=== PATIENT | female | born 1985 | race Caucasian/White ===

== ENCOUNTER 2017-11-11 08:17 | Emergency (ER) | payer MEDICAID ==
[~2017-11-11] VITALS: Ht 162.6 cm; Wt 65.0 kg
[~2017-11-11 08:17] MED LIST: VIST25CA PO
[2017-11-11 08:25] VITALS: BP 102/59; PULSE 78; RESP 16; TEMP 98.6; O2SAT 100
[2017-11-11] MEDS ORDERED: AZIT250T3 PO (08:42)
--- NOTE | 2017-11-11 08:43 | PD ---
HPI Chief Complaint: ENT Complaint Time Seen by Provider: 08:30 Travel History International Travel<30 days: No Contact w/Intl Traveler<30days: No Traveled to known affect area: No History of Present Illness HPI Patient is a 32-year-old female presenting to the emergency department for evaluation of 2 days of loss of voice, ear pressure, sore throat. Patient has not been taking any igii-fbp-owclxrj medications to alleviate her symptoms. She denies any fever, chills, nausea, vomiting, shortness of breath, chest pain. She denies any significant past medical history. Symptom onset was gradual, symptoms are mild to moderate nature. There are no alleviating factors. Symptoms are constant in nature. PFSH Past Medical History Depression: Yes (CHRONIC DEPRESSION, AT 16 HX OF CUTTING AND TAKING PILLS) Immunizations Current: Yes ?: Not : 4 Para: 1 Miscarriage: 0 : 2 Past Surgical History Gynecologic Surgery: Yes (2 ABORTIONS) Oral Surgery: Yes (WISDOM TEETH) Thoracic Surgery: Yes (BREAST IMPLANTS) Social History Alcohol Use: Yes (OCC) Tobacco Use: No Substance Use: No (LAST MARIJUANA 2000) Allergies-Medications (Allergen,Severity, Reaction): Coded Allergies: latex (Unverified Allergy, Mild, RASH, 01/14/17) lactose (Unverified Allergy, Unknown, 01/14/17) penicillin G (Unverified Allergy, Unknown, 01/14/17) Reported Meds & Prescriptions Reported Meds & Active Scripts Active Reported Vistaril (Hydroxyzine Pamoate) 25 Mg Cap 25 Mg PO HS Review of Systems Except as stated in HPI: all other systems reviewed are Neg General / Constitutional: No: Fever, Chills HENT: Positive: Sore Throat, Rhinitis, Congestion, Earache Cardiovascular: No: Chest Pain or Discomfort Respiratory: Positive: Cough, No: Shortness of Breath, Wheezing Gastrointestinal: No: Nausea, Vomiting, Abdominal Pain Musculoskeletal: No: Myalgias Neurologic: No: Dizziness Physical Exam Narrative GENERAL: Well-developed, well-nourished, alert female. Presenting in no acute distress. SKIN: Warm and dry. HEAD: Atraumatic. Normocephalic. EYES: Pupils equal and round. No scleral icterus. No injection or drainage. Extraocular movements are intact. ENT: No nasal bleeding or discharge. Mucous membranes pink and moist. Bilateral tympanic membranes and external ear canals are without erythema, bulging, dullness, exudate. Posterior pharynx with cobblestone appearance, no lymphadenopathy noted, no tonsillar hypertrophy noted. NECK: Trachea midline. No JVD. CARDIOVASCULAR: Regular rate and rhythm. RESPIRATORY: No accessory muscle use. Clear to auscultation. Breath sounds equal bilaterally. GASTROINTESTINAL: Abdomen soft, non-tender, nondistended. Hepatic and splenic margins not palpable. MUSCULOSKELETAL: Extremities without clubbing, cyanosis, or edema. No obvious deformities. NEUROLOGICAL: Awake and alert. No obvious cranial nerve deficits. Motor grossly within normal limits. Five out of 5 muscle strength in the arms and legs. Normal speech. PSYCHIATRIC: Appropriate mood and affect; insight and judgment normal. Data Data Last Documented VS Vital Signs Date Time Temp Pulse Resp B/P (MAP) Pulse Ox O2 Delivery O2 Flow Rate FiO2 11/11/17 08:25 98.6 78 16 102/59 (73) 100 [facility] Medical Decision Making Medical Screen Exam Complete: Yes Emergency Medical Condition: Yes Interpretation(s) Vital Signs Date Time Temp Pulse Resp B/P (MAP) Pulse Ox O2 Delivery O2 Flow Rate FiO2 18 08:25 98.6 78 16 102/59 (73) 100 Differential Diagnosis Sinusitis versus pharyngitis versus laryngitis versus URI versus other Narrative Course Patient is a 32-year-old female presenting for evaluation of cold symptoms that started 2 days ago. Patient's vital signs are stable. She is well-appearing. Symptoms are most consistent with a viral URI, laryngitis. Patient was advised that this is normally self resolving, self-limiting. She was encouraged to obtain odvo-brn-umfdqpj nasal decongestant and use as directed. She is encouraged to take acetaminophen or ibuprofen as needed and as directed for fevers or pain. She was encouraged to return to emergency department any new or worsening symptoms. Patient verbalized understanding of instructions. Patient stable for discharge. Diagnosis Primary Impression: Laryngitis Additional Impression: Upper respiratory infection Qualified Codes: J06.9 - Acute upper respiratory infection, unspecified Referrals: Primary Care Physician Patient Instructions: General Instructions, Laryngitis (ED), Upper Respiratory Infection (ED) Additional Instructions: Trial conservative management with seoj-pib-yshlatg therapies as discussed Obtain jwpc-tlz-nbffakh nasal decongestant, Flonase or Nasonex, use as directed and as needed Take acetaminophen or ibuprofen for fevers, headaches as needed and as directed Follow-up with your primary doctor Return to emergency department for any new worsening symptoms If you begin antibiotic, complete full course of therapy. Again trial conservative management this time because symptoms are likely viral in nature and antibiotics are not effective against viruses. Med/Other Pt SpecificInfo: Prescription(s) given Scripts Azithromycin (Azithromycin) 250 Mg Tab 250 MG PO DIRECTED for Infection, #6 TAB 0 Refills Take 2 tabs (500 mg) on day 1 then 1 tab daily x 4 days. Prov: Latoya Toribio 11/11/17 Disposition: 01 DISCHARGE HOME Condition: Stable Latoya Toribio Nov 11, 2017 08:43
== END 2017-11-11 09:02 | disposition home or self-care (01) ==
LOC: NEPD 08:17
DX: J04.0 Acute laryngitis (principal); J06.9 Acute upper respiratory infection, unspecified
CPT/HCPCS: 99283